=== PATIENT | male | born 1970 | race Caucasian/White ===

== ENCOUNTER → 2021-02-18 10:20 | Outpatient (BNVA) | payer OTHER, SELFPAY | PROVIDERS: PCP Internal Medicine; Visit Provider Hospitalist ==

== ENCOUNTER 2022-12-30 10:00 | Outpatient (REF) | payer OTHER, SELFPAY ==
--- NOTE | 2022-12-30 13:12 | PFT_ITS ---
INDICATION: Asthma. SPIROMETRY: FEV1 to FVC of 76% with an FEV1 of 3.38 L, which is 79% predicted and an FVC of 4.43 L, which is 80% predicted. There was a significant response to bronchodilator is noted. Maximum voluntary ventilation is 79% of predicted. LUNG VOLUMES: Total lung capacity 87% predicted with an expiratory reserve volume of only 9% predicted. DIFFUSION CAPACITY: DLCO 83% predicted. COMPARISONS: None. INTERPRETATION: No obstructive nor restrictive ventilatory defects identified. The patient did have a significant response to bronchodilators noted and also significant small airway disease consistent with a history of asthma. There is some mild decrease in maximum voluntary ventilation secondary to likely deconditioning. Lung volumes are normal except for decrease in the expiratory reserve volume secondary to an elevated BMI. Diffusion capacity is within normal limits. When compared to 2019, there is a significant decrease in the FVC, no significant change in the FEV1, a trend increase in the total lung capacity, and a trend increase in the diffusion capacity. Clinical correlation warranted. MD MARGARET Allison/CONCEPCIÓN / [id number]
== END 2022-12-30 10:01 | disposition home or self-care (01) ==
LOC: HO.RESP 10:00
PROVIDERS: PCP Internal Medicine; Visit Provider Hospitalist
DX: J45.909 Unspecified asthma, uncomplicated (principal)
CPT/HCPCS: 94060; 94727; 94729

== ENCOUNTER → 2023-01-09 10:10 | Outpatient (BNVA) | payer OTHER, SELFPAY | PROVIDERS: PCP Internal Medicine; Visit Provider Hospitalist | DX: Z13.89 Encounter for screening for other disorder (principal) ==

== ENCOUNTER 2024-07-02 09:20 | Outpatient (AMB) | payer OTHER, SELFPAY ==
[2024-07-02 09:27] VITALS: PULSE 69; O2SAT 98; BMI 30.3
--- NOTE | 2024-07-02 09:27 | MHC.OFFVIS ---
Vital Signs 07/02/24 09:27 Height 6 ft 1 in Weight 230 lb BMI 30.3 Pulse 69 Pulse Source Pulse Oximeter Pulse Oximetry (%) 98 Oxygen Delivery Method Room Air Intake Visit Reasons: Asthma Process Development Engineer Required: No Allergies No Known Allergies Allergy (Verified 07/02/24 09:28) HPI Comments Details: The patient is a 54-year-old gentleman with a history of pneumonia several years back. Apparently at that time he was in [place] and was admitted with respiratory failure to the ICU. He was not clear at the time the etiology of his lower respiratory infection. He was able to be discharged. After that he did have off and on respiratory symptoms. He will need usually prednisone for brief period of time in addition to some antibiotics. He would also have a rescue inhaler. However, about a month ago his respiratory symptoms worsen with significant cough and shortness of breath. He would be short of breath even with minimal activity. He became very concerned he was evaluated the medical Center. He was found to be hypoxic down to the 80s and he also had a CT scan of the chest demonstrating extensive bronchiolitis in his right upper lung zone in addition to the bilateral lower lung zones right more than left. Consistent with bronchiolitis and bronchitis. The patient required a 2nd course of prednisone and antibiotics. Now he is feeling better back to his baseline. He is is concerned that he does not want to be crippled by this respiratory issues. As far as exposures to have a dog at home. Denies any other pets denies any other hobbies. 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 We did review his pulmonary function studies demonstrating a reversible obstruction although his FEV1 to FVC still on the lower limit of normal. In addition to that we review his allergy testing with multiple environmental and mold allergies. Some are pretty significant. Therefore I given copies any will look into it further. Additional allergy medication may be warranted but he is not looking to start any new medicines at this time since he is doing okay. Will plan to have him come back in several months and repeat his chest x-ray. At that time we could reconsider allergy medicine. 07/02/2024 the patient is here for a pulmonary follow-up visit. The patient overall has been doing very well. He unfortunately ran out of his Symbicort and quickly his symptoms started to worsen. He started developing some chest congestion some chest tightness. Does respond very well to the Symbicort would like to continue it. He also uses allergy medication [id number] with good response. The patient is also working on dietary changes. He has had some weight gain. He also has some lower extremity edema. We did talk about the importance of low-sodium diet. Is going to work on that too. So therefore he continue with current respiratory therapy. Will go ahead and request a chest x-ray. He can follow-up in a year's time. [facility] Medical History (Updated 07/02/24 @ 22:08 by Peañ Rolle MD) Bronchiolitis Pneumonia Chronic allergic rhinitis Asthma Social History (Updated 01/09/23 @ 10:21 by LEO Davenport) Patient Tobacco Use Status: Never used Tobacco Review of Systems Const Denies night sweats and Reports weight gain ENT Denies change in voice, Denies lip swelling, Denies mouth pain, Reports nasal congestion, Reports nasal discharge and Denies tongue swelling Card Denies chest pain and Reports dyspnea on exertion Resp Reports cough, Reports dyspnea on exertion and Reports wheezing GI Denies abdominal pain Musc Denies no additional complaints Neuro Denies Neuro-related abnormal movements Psych Denies no additional complaints Ander/Lymph Denies easy bleeding and Denies lymphadenopathy Aller/Immun Denies lip swelling, Denies tongue swelling and Reports wheezing Physical Exam Vital Signs: Last Vital Signs Pulse 69 07/02/24 09:27 Pulse Ox 98 07/02/24 09:27 Oxygen Delivery Method Room Air 07/02/24 09:27 BMI result Body Mass Index 30.3 Const General: alert Eyes Conjunctivae: conjunctival abnormal bilateral conjunctival injection and discharge Neck Neck: Yes normal visual inspection, Yes full ROM and Yes no lymphadenopathy Chest Chest palpation & inspection: normal inspection of the chest Resp Effort & Inspection: normal respiratory effort Auscultation: no wheezes and diminished lung sounds Cardio Rate: regular rate Rhythm: regular rhythm Heart sounds: S1 normal heart sound present, S2 normal heart sound present and Normal, physiologic split S2 sound present GI Palpation (GI): Soft to palpation and nontender Auscultation: normal bowel sounds General: Yes no CVA tenderness Back/Spine/Pelvis Back: no CVA tenderness Skin General skin exam: rashes and/or lesions noted Assessment & Plan Assessment & Plan (1) Asthma: Code(s): J45.909 - Unspecified asthma, uncomplicated Category: Medical Qualifiers: Asthma complication type: uncomplicated Asthma persistence: persistent Asthma severity: moderate Qualified Code(s): J45.40 - Moderate persistent asthma, uncomplicated (2) Chronic allergic rhinitis: Code(s): J30.9 - Allergic rhinitis, unspecified Category: Medical (3) Allergy to mold: Code(s): Z91.048 - Other nonmedicinal substance allergy status Category: Medical (4) Acute bacterial conjunctivitis: Code(s): H10.30 - Unspecified acute conjunctivitis, unspecified eye Category: Medical Qualifiers: Laterality: bilateral Qualified Code(s): H10.33 - Unspecified acute conjunctivitis, bilateral Plan continue Symbicort continue TRISTAN as needed Continue generic Zyrtec Consider Singulair nasal rinsing Mold avoidance CXR 1 yr Orders: Orders XR chest 2V Today J45.40 - Moderate persistent asthma, uncomplicated Medications: New erythromycin 0.5 inches ophthalmic (eye) BID 3.5 grams 0RF 7 days Changed From Symbicort 160-4.5 mcg/actuation (budesonide-formoterol) 2 puffs PO BID 90 days 3 ea 3RF NS To budesonide-formoterol 160-4.5 mcg/actuation 2 puffs inhalation BID 30.6 grams 3RF 30 days NS Coding Level of Care Code Est Pt Level 4 (75517) Diagnoses Moderate persistent asthma without complication J45.40 Asthma complication type: uncomplicated Asthma persistence: persistent Asthma severity: moderate Chronic allergic rhinitis J30.9 Allergy to mold Z91.048 Acute bacterial conjunctivitis of both eyes H10.33 Laterality: bilateral Time Spent (min) 16
== END 2024-07-02 09:42 | disposition home or self-care (01) ==
PROVIDERS: PCP Internal Medicine; Visit Provider Hospitalist
DX: J45.40 Moderate persistent asthma, uncomplicated (principal); J30.9 Allergic rhinitis, unspecified; Z91.048 Other nonmedicinal substance allergy status; H10.33 Unspecified acute conjunctivitis, bilateral
CPT/HCPCS: 99214

== ENCOUNTER → 2024-07-02 09:20 | Outpatient (BNVA) | payer OTHER, SELFPAY | PROVIDERS: PCP Internal Medicine; Visit Provider Hospitalist ==

== ENCOUNTER 2025-04-21 13:50 | Outpatient (AMB) | payer OTHER, SELFPAY ==
--- NOTE | 2025-04-21 13:52 | A.OFFPC_ITS ---
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 Allergies acetaminophen [From Tylenol] Allergy (Unknown, Verified 04/21/25 14:00) Unknown Medication List - Last Reconciled 04/21/25 by Paula Espinoza, SANITARIAN AIDE- albuterol sulfate 90 mcg/actuation 2 puffs PO Q4H PRN cetirizine (Zyrtec) 10 mg PO DAILY PRN Symbicort 160-4.5 mcg/actuation (budesonide-formoterol) 2 puffs inhalation BID 30 days NS Zepbound (tirzepatide (weight loss)) 5 mg (0.5 mL) subcut QWEEK NS Tobacco use date assessed: 04/21/25 Dental Screening Dental Screen Date: 04/21/25 Did you have a dental visit in the last 12 months?: Yes Did you have a dental problem in the last 6 months where you did not have access to dental care?: No Was dental information given to patient?: Patient has dentist HPI HPI Comments History of Present Illness Details 55 year old male with past medical histo ry of seasonal allergies, chronic cough, History - The patient is a 55-year-old male pres enting with wheezing and increased inhaler usage over the last three weeks. - Past asthma and seasonal allergies. - Increased Symbicort usage from one puf f daily to two twice daily. - Aggravated symptoms linked to high humberto rafael, including initial severe nasal allergy symptoms which are now resolved. - Productive cough with yellow sputum, n o fever or chills present. - Use of Flonase and OTC allergy meds; r elief is partial. - Rescue inhaler used in this episode; t ypically not needed. Asthma/allergies: on symbicort 160-4.5 2 puff twice daily, prn albuterol, zyrtec. Pneumonia in fall 2023. Place on duo antibiotic therapy. FFd by [facility] pulm, last visit 06/2024, note reviewed. Annual FU only. ROS CONSTITUTIONAL: Denies weight loss, fever and chills. HEENT: Denies changes in vision and hearing. RESPIRATORY: Denies SOB and cough. CV: Denies palpitations and CP GI: Denies abdominal pain, nausea, vomiting and diarrhea. Physical Exam General: Awake, alert. No apparent distress Eyes: Sclera and conjunctiva clear bilaterally Nose: Nares patent, turbinates within normal limits, no sinus tenderness with palpation bilaterally Ears: Tympanic membranes intact and clear bilaterally Throat: Moist mucosa membrane, pharynx within normal limits Cardiovascular: Regular rate and rhythm Respiratory: LLL coarse rhonci, no LOTT, no cough noted during exam Results CXR ordered and pending Discussion Notes I discussed the patient's symptoms and likely exacerbation of asthma due to increased pollen and potential upper respiratory involvement. I recommended a short course of prednisone to address airway inflammation and alleviate wheezing. I emphasized the proper use of inhalers and the potential need for a chest X-ray to rule out other causes for a persistent cough, such as a bacterial infection. I advised the patient to look for any worsening symptoms and to ensure follow-up care. It was discussed and agreed that any future diagnostic imaging results would be promptly reviewed and shared via the patient portal, giving the patient anticipatory guidance on steps moving forward based on current findings. Assessment and Plan 1. Asthma Exac and Hx of PNA - Exacerbation likely from pollen; incre ase Symbicort to two puffs BID. - Prednisone 50 mg daily for five days. - Zpak - chest X-ray 2. Seasonal Allergies - Continue Flonase and Zyrtec. - Avoid allergens; monitor symptoms. 3. Chronic Cough - Related to asthma exacerbation. Patient Instructions - Take Symbicort as prescribed, two puff s twice daily. - Complete prednisone course as directed . - Continue Flonase and Zyrtec - complete ZPak . - Avoid exposure to high pollen if possi ble. - Use rescue inhaler as needed. - Watch for worsening symptoms; seek car e if condition deteriorates. Consent Patient was informed and verbally consented to the use of an ambient scribe for clinic note documentation during this visit. Total time spent caring for the patient today was 30 minutes. This includes time spent before the visit reviewing the chart, time spent during the visit, and time spent after the visit on documentation, reviewing laboratory results, diagnostic imaging, medications, performing a medically necessary evaluation, counseling on diagnoses, care coordination, ordering appropriate tests, ordering appropriate medications, review of tests performed by other providers, reporting test results with the patient, communication with other healthcare providers. [facility] Medical History Bronchiolitis Pneumonia Chronic allergic rhinitis Asthma Family History Father Diabetes Paternal Grandmother Brain cancer Social History Housing: House Patient Tobacco Use Status: Never used Tobacco e-Cigarette/Vaping Use: Never Used Second Hand Smoke Exposure: No service: No Current occupational status: employed Current occupation: [employer] Current occupational exposures/hazards: No Cognitive needs: No Hearing needs: No Vision needs: No Questionnaire PHQ-9 Over the last 2 weeks, how often have you been bothered by any of the following problems? 1. Little interest or pleasure in doing things: not at all 2. Feeling down, depressed, or hopeless: not at all 3. Trouble falling or staying asleep, or sleeping too much: not at all 4. Feeling tired or having little energy: not at all 5. Poor appetite or overeating: not at all 6. Feeling bad about yourself - or that you are a failure or have let yourself or your family down: not at all 7. Trouble concentrating on things, such as reading the newspaper or watching television: not at all 8. Moving or speaking so slowly that other people could have noticed. Or the opposite - being so fidgety or restless that you have been moving around a lot more than usual: not at all 9. Thoughts that you would be better off or of hurting yourself in some way: not at all Total score: 0 Depression Screening Interpretation: Negative Depression Screening Done: Yes 23000 - PHQ-9 Billing: Yes Source: Developed by Drs. Fidel Ferrari, Chelsey Moore, Beka Vickers and colleagues, with an educational jose from [email or web address]. Thrive Questionnaire Date Thrive assessed: 04/21/25 I am a: Patient What is your living situation today?: I have a steady place to live Within the past 12 months, did the food you bought not last and you didn't have the money to get more?: Never true Within the past 12 months, did you worry whether your food would run out before you got money to buy more?: Never true Do you have trouble paying for medicines?: Yes Do you have trouble getting transportation to medical appointments?: No Do you have trouble paying your heating and electricity bill?: No Do you have trouble taking care of your child, family member or friend?: No Do you have trouble with day-to-day activities such as bathing, preparing meals, shopping, managing finances, etc.?: No Are you currently unemployed and looking for a job?: No Are you interested in more education?: No Please select the resources that you would like help with: None Currently or been in a relationship where the following occur: I choose not to answer THRIVE Score: 0 ARLYN-7 AMB Questionnaire ARLYN-7 Date ARLYN - 7 assessed: 04/21/25 Feeling nervous, anxious, or on edge: 0 = Not at all Not being able to stop or control worryin = Not at all Worrying too much about different things: 0 = Not at all Trouble relaxin = Not at all Being so restless that it is hard to sit still: 0 = Not at all Becoming easily annoyed or irritable: 0 = Not at all Feeling afraid as if something awful might happen: 0 = Not at all Total ARLYN-7 score (0-4 normal; 5-9 mild; 10-14 moderate; 15-21 severe): 0 Source: Developed by Drs. Fidel Ferrari, Chelsey Moore, Beka Vickers and colleagues, with an educational jose from [email or web address]. ARLYN-7 Assessment Billing ARLYN-7 Assessment Tool: ARLYN-7 Assessment 64476 Physical exam (Primary Care) Vital Signs: Last Vital Signs Temp 97.2 F 04/21/25 13:56 Pulse 62 04/21/25 13:56 Resp 12 04/21/25 13:56 BP 128/72 04/21/25 13:56 Pulse Ox 98 04/21/25 13:56 Oxygen Delivery Method Room Air 04/21/25 13:56 BMI result Body Mass Index 32.6 Tobacco/Smoking Status: Tobacco use Status Tobacco use date assessed 04/21/25 04/21/25 13:58 Patient Tobacco Use Status Never used Tobacco 04/21/25 13:58 e-Cigarette/Vaping Use Never Used 04/21/25 13:58 PHQ-9: PHQ-9 Score PHQ-9: Total score 0 04/21/25 14:01 Depression Screening Interpretation: Negative Thrive Assessment: Date of Thrive Assessment Date Thrive assessed 04/21/25 04/21/25 13:58 Currently or been in a relationship where the following occur: I choose not to answer Coding Level of Care Code Est Pt Level 4 (05255) Complex EM visit Add On G2211 Diagnoses Moderate persistent asthma without complication J45.40 Asthma complication type: uncomplicated Asthma persistence: persistent Asthma severity: moderate Subacute cough R05.2 Cough type: subacute Additional Codes ARLYN-7 Assessment Billing - ARLYN-7 Assessment Tool: ARLYN-7 Assessment 87293 ([id number]) PHQ-9 - 24782 - PHQ-9 Billing: Yes ([id number]) Assessment & Plan Assessment & Plan (1) Asthma: Code(s): J45.909 - Unspecified asthma, uncomplicated Category: Medical Qualifiers: Asthma complication type: uncomplicated Asthma persistence: persistent Asthma severity: moderate Qualified Code(s): J45.40 - Moderate persistent asthma, uncomplicated (2) Cough: Code(s): R05.9 - Cough, unspecified Category: Medical Qualifiers: Cough type: subacute Qualified Code(s): R05.2 - Subacute cough Plan . Orders: Orders XR chest 2V Today J45.40 - Moderate persistent asthma, uncomplicated, R05.9 - Cough, unspecified Medications: New prednisone 50 mg PO DAILY 5 tabs 0RF 5 days azithromycin For 250 mg dose pack: take 500 mg today (day 1), then 250 mg for 4 days (days 2-5) PO 6 tabs 0RF 5 days
[2025-04-21 13:56] VITALS: BP 128/72; PULSE 62; RESP 12; TEMP 36.2; O2SAT 98; BMI 32.6
== END 2025-04-21 14:12 | disposition home or self-care (01) ==
LOC: HO.HMCFM 13:51
PROVIDERS: PCP Internal Medicine; Visit Provider Nurse Practitioner Family
DX: J45.40 Moderate persistent asthma, uncomplicated (principal); R05.2 Subacute cough

== ENCOUNTER → 2025-04-21 13:50 | Outpatient (BNVA) | payer OTHER, SELFPAY | PROVIDERS: PCP Internal Medicine; Visit Provider Nurse Practitioner Family | DX: J45.40 Moderate persistent asthma, uncomplicated (principal); R05.2 Subacute cough; Z91.09 Other allergy status, other than to drugs and biological substances; Z13.31 Encounter for screening for depression; Z13.30 Encounter for screening examination for mental health and behavioral disorders, unspecified | CPT/HCPCS: 96127 ==

== ENCOUNTER 2025-06-24 10:25 | Outpatient (AMB) | payer OTHER, SELFPAY ==
--- NOTE | 2025-06-24 10:28 | A.OFFPC_ITS ---
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 Allergies acetaminophen (From Tylenol) Allergy (Unknown, Verified 06/24/25 10:49) Unknown Medication List - Last Reconciled 06/24/25 by TRISH Bautista- albuterol sulfate 90 mcg/actuation 2 puffs PO Q4H PRN cetirizine (Zyrtec) 10 mg PO DAILY PRN Symbicort 160-4.5 mcg/actuation (budesonide-formoterol) 2 puffs inhalation BID 30 days NS Zepbound (tirzepatide (weight loss)) 5 mg (0.5 mL) subcut QWEEK NS Tobacco use date assessed: 06/24/25 Dental Screening Dental Screen Date: 06/24/25 Did you have a dental visit in the last 12 months?: Yes Did you have a dental problem in the last 6 months where you did not have access to dental care?: No Was dental information given to patient?: Patient has dentist HPI HPI Comments History of Present Illness Details 55 year old male with f seasonal allergi es, chronic cough, hyperlipidemia, h/o elevated BP , obesity Surgery: denies new surgery Fhx: No changes Colonoscopy: Colonoscopy 2022, [place], repeat 3 years Tdap 2022 Eye and Lasix cheaters only for reading History of Present Illness - The patient is a 55-year-old male pres enting for a complete physical examination. - Asthma managed with Zyrtec, Symbicort, and albuterol; monitored by pulmonology; no recent exacerbations. - Obesity with a BMI of 31.6; current tr eatment with Zepbound 5 mg. - Reports a Bump L owen, present since antonio higginbotham 05/16/25 - No recent surgeries; family medical hi story remains unchanged. - Colonoscopy done in 2022; follow-up du bryan in 2025. - Regular eye exams; reading glasses Past Surgical History - LASIK surgery in 2006 Family History - No changes reported in family medical history Social History - Patient has battled weight issues and is managing obesity with Zepbound, experiencing weight loss. - Expresses difficulties abstaining from sweets - Previously changed insurance plans due to family dissatisfaction with provider Leidy. - Adjusted to new insurance, inquiring a bout coverage continuation for Zepbound. Health Maintenance - Recent colonoscopy in 2022; next due i n 2025. - Tetanus vaccination received in 2022. Review of Systems - Respiratory: Denies exacerbations, rep orts asthma well-managed. - Dermatologic: Reports a bump on the le ft weaver, denies infection symptoms. - General: Denies recent surgeries. - Vision: Reports regular eye exams post -LASIK; uses reading glasses. Physical Exam General: Well developed, well nourished, in no acute distress. Appears stated age. Obesity with a BMI of 31.6 noted. Head: Normocephalic, atraumatic. Eyes: Pupils are equal, round and reactive to light and accommodation. Conjunctivae are clear. Vision grossly normal. Ears: TMs clear AU, EACS WNL. Nose: Patent, without discharge. Neck: Supple, no adenopathy or thyromegaly. Breast: Edu on SBE. Lungs: Clear to auscultation bilaterally. No rales, rhonchi or wheeze noted. Good air flow in all zarco. Heart: Regular rate and rhythm. No murmurs, click, rubs or gallops are noted. Abdomen: Bowel sounds present in all quadrants. The abdomen is soft, nontender, with no masses or organomegaly noted. No hernias are noted. : Deferred. Reviewed CHRIS & recommendations Pulses: Peripheral pulses are equal and palpable bilaterally. Extremities: No clubbing, cyanosis nor edema is noted. L anterior weaver, proximal to ankle is a palpable lump w/o fluctuance or signs of infection , overlying skin normal, no pain Neurologic: Gait and station normal. Cranial Nerves 2-12 intact. Motor strength grossly symmetrical and intact. No sensory loss. Balance normal. Skin: No rashes, ulcers, or lesions noted. Turgor is good. Skin color is good. Hair and nails are without abnormalities. Psych: Normal eye contact, affect and mood appropriate, and normal interactions. Patient is alert and appropriate to context. Results - Labs: Last available data from 2019 in current system. - Tests: Recent colonoscopy in 2022 aj cates a repeat schedule for 2025. - Ordered today and pending Discussion Notes During the visit, I reassured him that the bump on his weaver is likely due to coagulated blood from past trauma and not an infection, as evidenced by the absence of redness or pain. Suggested applying moist compresses to reduce the bump or leaving it alone if it does not bother him. Discussed the benefits of Zepbound for weight management and covered the need for potential prior authorization due to insurance changes. Advised a series of lab tests covering cholesterol and prostate screening for ongoing health maintenance. Encouraged clear communication with me or Dr. Martins to ensure continued management under new insurance coverage. Patient was given time to ask questions. All questions were answered to their satisfaction. Assessment and Plan 1. Asthma - Maintain Symbicort, albuterol regimen. - Regular pulmonology reviews. 2. Obesity - Continue Zepbound 5 mg. - Confirm insurance prior authorization. 3. Lump L ankle - Suspected coagulated blood. - Recommend moist compresses. - Supportive care and reassurance 4. Health Maintenance - Plan labs, prostate, cholesterol scree bri. - Flu vaccination when available. Patient Instructions - Apply moist compresses to the weaver bum p. - Continue asthma and allergy medication s as prescribed. - Maintain Zepbound for weight managemen t. - Await notification for upcoming lab re sults. - Acquire flu vaccine when accessible. - RTO 3 mo to fu with PCP on GLP1 , whic h may require paperwork given insurance change Consent Patient was informed and verbally consented to the use of an ambient scribe for clinic note documentation during this visit. [facility] Medical History (Updated 06/24/25 @ 11:34 by TRISH Bautista-BEAN) Asthma Bronchiolitis Chronic allergic rhinitis Pneumonia Surgical History (Updated 06/24/25 @ 08:34 by TRISH Bautista-BEAN) History of colonoscopy (~01/17/23) Family History Father Diabetes Paternal Grandmother Brain cancer Social History Housing: House Patient Tobacco Use Status: Never used Tobacco e-Cigarette/Vaping Use: Never Used Second Hand Smoke Exposure: No service: No Current occupational status: employed Current occupation: [employer] Current occupational exposures/hazards: No Cognitive needs: No Hearing needs: No Vision needs: No Questionnaire PHQ-9 Over the last 2 weeks, how often have you been bothered by any of the following problems? 1. Little interest or pleasure in doing things: not at all 2. Feeling down, depressed, or hopeless: not at all 3. Trouble falling or staying asleep, or sleeping too much: not at all 4. Feeling tired or having little energy: not at all 5. Poor appetite or overeating: not at all 6. Feeling bad about yourself - or that you are a failure or have let yourself or your family down: not at all 7. Trouble concentrating on things, such as reading the newspaper or watching television: not at all 8. Moving or speaking so slowly that other people could have noticed. Or the opposite - being so fidgety or restless that you have been moving around a lot more than usual: not at all 9. Thoughts that you would be better off or of hurting yourself in some way: not at all Total score: 0 Depression Screening Interpretation: Negative Depression Screening Done: Yes [id number] - PHQ-9 Billing: Yes Source: Developed by Drs. Fidel Ferrari, Chelsey Moore, Beka Vickers and colleagues, with an educational jose from elicit. Thrive Questionnaire Date Thrive assessed: 06/24/25 I am a: Patient What is your living situation today?: I have a steady place to live Within the past 12 months, did the food you bought not last and you didn't have the money to get more?: Never true Within the past 12 months, did you worry whether your food would run out before you got money to buy more?: Never true Do you have trouble paying for medicines?: Yes Do you have trouble getting transportation to medical appointments?: No Do you have trouble paying your heating and electricity bill?: No Do you have trouble taking care of your child, family member or friend?: No Do you have trouble with day-to-day activities such as bathing, preparing meals, shopping, managing finances, etc.?: No Are you currently unemployed and looking for a job?: No Are you interested in more education?: No Please select the resources that you would like help with: None Currently or been in a relationship where the following occur: I choose not to answer THRIVE Score: 0 AUDIT C Alcohol Use Questionnaire (AUDIT-C) 1. How often do you have a drink containing alcohol?: Never 3. How often do you have six or more drinks on one occasion?: Never Total Score: 0 Score Reviewed/Action Taken: Yes ARLYN-7 AMB Questionnaire ARLYN-7 Date ARLYN - 7 assessed: 06/24/25 Feeling nervous, anxious, or on edge: 0 = Not at all Not being able to stop or control worryin = Not at all Worrying too much about different things: 0 = Not at all Trouble relaxin = Not at all Being so restless that it is hard to sit still: 0 = Not at all Becoming easily annoyed or irritable: 0 = Not at all Feeling afraid as if something awful might happen: 0 = Not at all Total ARLYN-7 score (0-4 normal; 5-9 mild; 10-14 moderate; 15-21 severe): 0 Source: Developed by Drs. Fidel Ferrari, Chelsey Moore, Beka Vickers and colleagues, with an educational jose from elicit. ARLYN-7 Assessment Billing ARLYN-7 Assessment Tool: ARLYN-7 Assessment 47593 ACT Questionnaire In the past 4 weeks, how much of the time did your asthma keep you from getting as much done at work, school or at home?: None of the time During the past 4 weeks, how often have you had shortness of breath?: Not at all During the past 4 weeks, how often did your asthma symptoms wake you up at night or earlier than usual in the morning?: Not at all During the past 4 weeks, how often have you had to use your rescue inhaler or nebulizer medication?: Not at all How would you rate your asthma control during the past 4 weeks?: Completely controlled ACT Interpretation: Negative Score: 25 Physical exam (Primary Care) Vital Signs: Last Vital Signs Temp 96.9 F 06/24/25 10:31 Pulse 78 06/24/25 10:31 Resp 12 06/24/25 10:31 BP 117/67 06/24/25 10:31 Pulse Ox 98 06/24/25 10:31 Oxygen Delivery Method Room Air 06/24/25 10:31 BMI result Body Mass Index 31.6 BMI Assessment/Plan discussion: High BMI High, discussed plan: lifestyle Tobacco/Smoking Status: Tobacco use Status Tobacco use date assessed 06/24/25 06/24/25 10:32 Patient Tobacco Use Status Never used Tobacco 06/24/25 10:32 e-Cigarette/Vaping Use Never Used 06/24/25 10:32 PHQ-9: PHQ-9 Score PHQ-9: Total score 0 06/24/25 10:49 Depression Screening Interpretation: Negative Thrive Assessment: Date of Thrive Assessment Date Thrive assessed 06/24/25 06/24/25 10:32 Currently or been in a relationship where the following occur: I choose not to answer Coding Level of Care Code Est Pt Prev Care 40-64y(22039) Diagnoses Encounter for general adult medical examination without abnormal findings Z00.00 Chronic allergic rhinitis J30.9 Obesity (BMI 30-39.9) E66.9 Moderate persistent asthma without complication J45.40 Asthma complication type: uncomplicated Asthma persistence: persistent Asthma severity: moderate Laboratory exam ordered as part of routine general medical examination Z00.00 Long-term (current) use of injectable non-insulin antidiabetic drugs Z79.85 Additional Codes Asthma Control Questionnaire - ACT Interpretation: Negative ([id number]) ARLYN-7 Assessment Billing - ARLYN-7 Assessment Tool: ARLYN-7 Assessment 71248 ([id number]) PHQ-9 - 84481 - PHQ-9 Billing: Yes ([id number]) Assessment & Plan Assessment & Plan (1) Encounter for general adult medical examination without abnormal findings: Onset Date: ~06/24/25 Code(s): Z00.00 - Encounter for general adult medical examination without abnormal findings Category: Medical (2) Chronic allergic rhinitis: Code(s): J30.9 - Allergic rhinitis, unspecified Category: Medical (3) Obesity (BMI 30-39.9): Code(s): E66.9 - Obesity, unspecified Category: Medical (4) Asthma: Code(s): J45.909 - Unspecified asthma, uncomplicated Category: Medical Qualifiers: Asthma complication type: uncomplicated Asthma persistence: persistent Asthma severity: moderate Qualified Code(s): J45.40 - Moderate persistent asthma, uncomplicated (5) Laboratory exam ordered as part of routine general medical examination: Code(s): Z00.00 - Encounter for general adult medical examination without abnormal findings Category: Medical (6) Long-term (current) use of injectable non-insulin antidiabetic drugs: Code(s): Z79.85 - Long-term (current) use of injectable non-insulin antidiabetic drugs Category: Medical Plan , Orders: Orders Complete Blood Count no Diff Today Z00.00 - Encounter for general adult medical examination without abnormal findings Comprehensive Met. Panel Today Z00.00 - Encounter for general adult medical examination without abnormal findings Hemoglobin A1c Today Z00.00 - Encounter for general adult medical examination without abnormal findings Lipid Panel Today Z00.00 - Encounter for general adult medical examination without abnormal findings Microalbumin, Random (w Creat) Today Z00.00 - Encounter for general adult medical examination without abnormal findings Prostate Specific Antigen Scr Today Z00.00 - Encounter for general adult medical examination without abnormal findings Vitamin D 25-OH Total Today Z00.00 - Encounter for general adult medical examination without abnormal findings TSH reflex Free T4 Today Z00.00 - Encounter for general adult medical examination without abnormal findings Vitamin B12 and Folate Today Z00.00 - Encounter for general adult medical examination without abnormal findings Patient Instructions: Health screenings for men You should visit your health care provider regularly, even if you feel healthy. The purpose of these visits is to: Screen for medical issues Assess your risk for future medical problems Encourage a healthy lifestyle Update vaccinations and other preventive care services Help you get to know your provider in case of an illness Information Even if you feel fine, you should still see your provider for regular checkups. These visits can help you avoid problems in the future. For example, the only way to find out if you have high blood pressure is to have it checked regularly. High blood sugar and high cholesterol level also may not have any symptoms in the early stages. Simple blood tests can check for these conditions. There are specific times when you should see your provider or receive specific health screenings. The [place] Preventive Services Task Force publishes a list of recommended screenings. Below are screening guidelines for men ages 40 to 64. BLOOD PRESSURE SCREENING Have your blood pressure checked at least once every year. Watch for blood pressure screenings in your area. Ask your provider if you can stop in to have your blood pressure checked. Ask your provider if you need your blood pressure checked more often if: You have diabetes, heart disease, kidney problems, or are overweight or have certain other health conditions You have a first-degree relative with high blood pressure You are Black Your blood pressure top number is from 120 to 129 mm Hg, or the bottom number is from 70 to 79 mm Hg If the top number is 130 mm Hg or greater or the bottom number is 80 mm Hg or greater, this is considered stage 1 hypertension. Schedule an appointment with your provider to learn how you can lower your blood pressure. Effects of age on blood pressure CHOLESTEROL SCREENING Cholesterol screening should begin at age 35 for men with no known risk factors for coronary heart disease. Repeat cholesterol screening should take place: Every 5 years for men with normal cholesterol levels More often if changes occur in lifestyle (including weight gain and diet) More often if you have diabetes, heart disease, kidney problems, or certain other conditions COLORECTAL CANCER SCREENING If you are under age 45, talk to your provider about getting screened. You may need to be screened if you have a strong family history of colon cancer or polyps. Screening may also be considered if you have risk factors such as a history of inflammatory bowel disease or polyps. If you are age 45 to 75, you should be screened for colorectal cancer. There are several screening tests available: A stool-based fecal occult blood (gFOBT) or fecal immunochemical test (FIT) every year A stool sDNA test every 1 to 3 years Flexible sigmoidoscopy every 5 years or every 10 years with stool testing FIT done every year CT colonography (virtual colonoscopy) every 5 years Colonoscopy every 10 years You may need a colonoscopy more often if you have risk factors for colorectal cancer, such as: Ulcerative colitis A personal or family history of colorectal cancer A history of growths in your colon called adenomatous polyps DENTAL EXAM Go to the dentist once or twice every year for an exam and cleaning. Your den tist will evaluate if you have a need for more frequent visits. DIABETES SCREENING All adults who do not have risk factors for diabetes should be screened starting at age 35 and repeated every 3 years. If you have other risk factors for diabetes, such as a first degree relative with diabetes, overweight or obesity, high blood pressure, prediabetes, or a history of heart disease, you may be tested more often. If you are overweight and have other risk factors, such as high blood pressure and are planning to become , screening is recommended. EYE EXAM Have an eye exam every 2 to 4 years ages 40 to 54 and every 1 to 3 years ages 55 to 64. Your provider may recommend more frequent eye exams if you have vision problems or glaucoma risk. Have an eye exam that includes an examination of your retina (back of your eye) at least every year if you have diabetes. IMMUNIZATIONS Commonly needed vaccines include: Flu shot: get one every year COVID-19 vaccine: ask your provider what is best for you Tetanus-diphtheria and acellular pertussis (Tdap) vaccine: have as one of your tetanus-diphtheria vaccines if you did not receive it as an adolescent Tetanus-diphtheria: have a booster (or Tdap) every 10 years Varicella vaccine: receive 2 doses if you never had chickenpox or the varicella vaccine and were born in 1979 or after Hepatitis B vaccine: receive 2, 3, or 4 doses, depending on your exact circumstances, if you did not receive these as a child or adolescent, until age 59 Shingles (herpes zoster) vaccine: at or after age 50 Ask your provider if you should receive other immunizations, especially if you have certain medical conditions, such as diabetes or are at increased risk for some diseases such as pneumonia. INFECTIOUS DISEASE SCREENING Screening for hepatitis C: all adults ages 18 to 79 should get a one-time test for hepatitis C. Screening for human immunodeficiency virus (HIV): all people ages 15 to 65 should get a one-time test for HIV. Depending on your lifestyle and medical history, you may need to be screened for infections such as syphilis, chlamydia, and other infections. LUNG CANCER SCREENING You should have an annual screening for lung cancer with low-dose computed tomography (LDCT) if: You are age 50 to 80 years AND You have a 20 pack-year smoking history AND You currently smoke or have quit within the past 15 years OSTEOPOROSIS SCREENING If you are age 50 to 64 and have risk factors for osteoporosis, you should discuss screening with your provider. Risk factors can include long-term steroid use, low body weight, smoking, heavy alcohol use, having a fracture after age 50, or a family history of hip fracture or osteoporosis. Osteoporosis PHYSICAL EXAM All adults should visit their provider from time to time, even if they are hea lthy. The purpose of these visits is to: Screen for diseases Assess risk of future medical problems Encourage a healthy lifestyle Update vaccinations and other preventive care services Maintain a relationship with a provider in case of an illness Your height, weight, and body mass index (BMI) should be checked at every exam. During your exam, your provider may ask you about: Depression and anxiety Diet and exercise Alcohol and tobacco use Safety, such as use of seat belts and smoke detectors Your medicines and risk for interactions PROSTATE CANCER SCREENING If you're 55 through 69 years old, before having the test, talk to your provider about the pros and cons of having a PSA test. Ask about: Whether screening decreases your chance of dying from prostate cancer. Whether there is any harm from prostate cancer screening, such as side effects from testing or overtreatment of cancer when discovered. Whether you have a higher risk of prostate cancer than others. If you are age 55 or younger, screening is not generally recommended. You should talk with your provider about if you have a higher risk for prostate cancer. Risk factors include: Having a family history of prostate cancer (especially a brother or father) Being If you choose to be tested, the PSA blood test is repeated over time (yearly or less often), though the best frequency is not known. Prostate examinations are no longer routinely done on men with no symptoms. Prostate cancer SKIN EXAM Your provider may check your skin for signs of skin cancer, especially if you're at high risk. People at high risk include those who have had skin cancer before, have close relatives with skin cancer, or have a weakened immune system. TESTICULAR EXAM The [place] Preventive Services Task Force (USPSTF) now recommends against performing testicular self-exams. Doing testicular self-exams has been shown to have little to no benefit.
[2025-06-24 10:31] VITALS: BP 117/67; PULSE 78; RESP 12; TEMP 36.1; O2SAT 98; BMI 31.6
--- OUTSIDE RECORDS SUMMARY | 2025-06-24 11:28 | XMS_ITS ---
Author Name [facility] Organization Unknown Care Team Organization Name Specialty Phone Email Start Date End Da te [facility] Daniela Lindquist [facility] 09/20/2022 4
== END 2025-06-24 11:08 | disposition home or self-care (01) ==
LOC: HO.HMCFM 10:26
PROVIDERS: PCP Internal Medicine; Visit Provider Nurse Practitioner Family
DX: Z00.00 Encounter for general adult medical examination without abnormal findings (principal); J30.9 Allergic rhinitis, unspecified; Z68.31 Body mass index [BMI] 31.0-31.9, adult; E66.9 Obesity, unspecified; J45.40 Moderate persistent asthma, uncomplicated; Z79.85 Long-term (current) use of injectable non-insulin antidiabetic drugs

== ENCOUNTER 2025-06-24 10:25 | Outpatient (REF) | payer OTHER, SELFPAY ==
[2025-06-24 14:21] LABS: Hematocrit 42.5 % (42.0-52.0); Hemoglobin 14.2 g/dl (14.0-18.0); Mean Corpuscular HGB Conc 33.4 g/dl (31.0-36.0); Mean Corpuscular Hemoglobin 31.5 pg (27.0-33.0); Mean Corpuscular Volume 94.2 fL (80.0-98.0); NRBC Abs Auto 0.000 X10*3/uL (0.0-0.012); NRBC Pct Auto 0.0 /100WBC (0.0-0.2); Platelet Count 183 X10*3/uL (160-400); Red Blood Count 4.51 X10*6/uL (4.60-5.80); White Blood Count 6.3 X10*3/uL (4.8-10.8)
[2025-06-24 14:43] LABS: Hemoglobin A1C 139.2524 umol/L; Total Hemoglobin (HGBA1C) 4041.4630 umol/L
[2025-06-24 14:47] LABS: Alanine Aminotransferase 37 U/L (0-40); Albumin Level 4.7 g/dL (3.5-5.0); Alkaline Phosphatase 95 U/L (39-117); Anion Gap 11 (12-20); Aspartate Amino Transferase 25 U/L (5-37); Blood Urea Nitrogen 22 mg/dL (9-16); Calcium 9.3 mg/dL (8.4-10.2); Carbon Dioxide 26 mmol/L (22-29); Chloride 107 mmol/L (96-108); Cholesterol 224 mg/dL (<200); Estimated Glomerular Filt Rate > 60; HDL Cholesterol 43 mg/dL (>40); Potassium 4.8 mmol/L (3.3-5.1); Sodium 139 mmol/L (135-145); Total Protein 7.1 g/dL (6.5-8.0); Triglycerides 86 mg/dL (<150)
[2025-06-24 14:47] LABS: Microalbum/Creatinine Ratio Ur 3.3 ug/mg cr (<30)
[2025-06-24 14:55] LABS: Folate 4.7 ng/mL (> or = 4.0); Vitamin B12 416 pg/mL (200-900)
== END 2025-06-24 10:26 | disposition home or self-care (01) ==
LOC: HO.WFDLDS 10:25
PROVIDERS: PCP Internal Medicine; Visit Provider Nurse Practitioner Family
DX: Z00.00 Encounter for general adult medical examination without abnormal findings (principal); Z12.5 Encounter for screening for malignant neoplasm of prostate; Z13.1 Encounter for screening for diabetes mellitus; E78.00 Pure hypercholesterolemia, unspecified; J30.9 Allergic rhinitis, unspecified; J45.40 Moderate persistent asthma, uncomplicated; E66.9 Obesity, unspecified; Z68.31 Body mass index [BMI] 31.0-31.9, adult; Z71.3 Dietary counseling and surveillance
CPT/HCPCS: 36415; 80053; 80061; 82043; 82306; 82570; 82607; 82746; 83036; 84153; 84443; 85027; 96127; 96160

== ENCOUNTER 2025-08-01 08:54 | Outpatient (AMB) | payer OTHER, SELFPAY ==
[2025-08-01 08:59] VITALS: BP 108/70; PULSE 70; O2SAT 96; BMI 32.3
--- NOTE | 2025-08-01 08:59 | A.OFFVIS_ITS ---
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 Apparently at that time he was in [place] and was admitted with respiratory failure to the ICU. He was not clear at the time the etiology of his lower respiratory infection. He was able to be discharged. After that he did have off and on respiratory symptoms. He will need usually prednisone for brief period of time in addition to some antibiotics. He would also have a rescue inhaler. However, about a month ago his respiratory symptoms worsen with significant cough and shortness of breath. He would be short of breath even with minimal activity. He became very concerned he was evaluated the medical Center. He was found to be hypoxic down to the 80s and he also had a CT scan of the chest demonstrating extensive bronchiolitis in his right upper lung zone in addition to the bilateral lower lung zones right more than left. Consistent with bronchiolitis and bronchitis. The patient required a 2nd course of prednisone and antibiotics. Now he is feeling better back to his baseline. He is is concerned that he does not want to be crippled by this respiratory issues. As far as exposures to have a dog at home. Denies any other pets denies any other hobbies. 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 We did review his pulmonary function studies demonstrating a reversible obstruction although his FEV1 to FVC still on the lower limit of normal. In addition to that we review his allergy testing with multiple environmental and mold allergies. So me are pretty significant. Therefore I given copies any will look into it further. Additional allergy medication may be warranted but he is not looking to start any new medicines at this time since he is doing okay. Will plan to have him come back in several months and repeat his chest x-ray. At that time we could reconsider allergy medicine. 07/02/2024 the patient is here for a pulmonary follow-up visit. The patient overall has been doing very well. He unfortunately ran out of his Symbicort and quickly his symptoms started to worsen. He started developing some chest congestion some chest tightness. Does respond very well to the Symbicort would like to continue it. He also uses allergy medication [id number] with good response. The patient is also working on dietary changes. He has had some weight gain. He also has some lower extremity edema. We did talk about the importance of low-sodium diet. Is going to work on that too. So therefore he continue with current respiratory therapy. Will go ahead and request a chest x- ray. He can follow-up in a year's time. 07/31/2025 the patient is here for pulmonary follow-up visit. Overall the patient has been doing well. He continues on Symbicort. He has been upset about his weight. He did go and Zepbound a little bit and it did help him some. Now is trying to make lifestyle changes in dietary changes. He is also trying to increase his exercise. Respiratory baird the patient is doing well denies any respiratory limitations. Will have him get an x-ray though because he has not have an x-ray for baseline. His last PFTs were back in 2022 which demonstrated small airways disease consistent with his diagnosis of asthma. He has been very stable on the Symbicort no additional medications required. The patient will follow-up in a year's time she has any issues he can always call for further recommendations. [facility] Medical History (Updated 06/25/25 @ 07:07 by TRISH Bautista-BEAN) Bronchiolitis Pneumonia Chronic allergic rhinitis Asthma Surgical History (Updated 06/24/25 @ 08:34 by TRISH Bautista-BEAN) History of colonoscopy (~01/17/23) Family History Father Diabetes Paternal Grandmother Brain cancer Social History Housing: House Patient Tobacco Use Status: Never used Tobacco e-Cigarette/Vaping Use: Never Used Second Hand Smoke Exposure: No service: No Current occupational status: employed Current occupation: [employer] Current occupational exposures/hazards: No Cognitive needs: No Hearing needs: No Vision needs: No Review of Systems Const Denies night sweats and Reports weight gain ENT Denies change in voice, Denies lip swelling, Denies mouth pain, Reports nasal congestion, Reports nasal discharge and Denies tongue swelling Card Denies chest pain and Reports dyspnea on exertion Resp Reports cough, Reports dyspnea on exertion and Reports wheezing GI Denies abdominal pain Musc Denies no additional complaints Neuro Denies Neuro-related abnormal movements Psych Denies no additional complaints Ander/Lymph Denies easy bleeding and Denies lymphadenopathy Aller/Immun Denies lip swelling, Denies tongue swelling and Reports wheezing Physical Exam Vital Signs: Last Vital Signs Pulse 70 08/01/25 08:59 BP 108/70 08/01/25 08:59 Pulse Ox 96 08/01/25 08:59 Oxygen Delivery Method Room Air 08/01/25 08:59 BMI result Body Mass Index 32.3 Const General: alert Eyes Conjunctivae: conjunctival abnormal bilateral conjunctival injection and discharge Neck Neck: Yes normal visual inspection, Yes full ROM and Yes no lymphadenopathy Chest Chest palpation & inspection: normal inspection of the chest Resp Effort & Inspection: normal respiratory effort Auscultation: no wheezes and diminished lung sounds Cardio Rate: regular rate Rhythm: regular rhythm Heart sounds: S1 normal heart sound present, S2 normal heart sound present and Normal, physiologic split S2 sound present GI Palpation (GI): Soft to palpation and nontender Auscultation: normal bowel sounds General: Yes no CVA tenderness Back/Spine/Pelvis Back: no CVA tenderness Skin General skin exam: rashes and/or lesions noted Assessment & Plan Assessment & Plan (1) Asthma: Code(s): J45.909 - Unspecified asthma, uncomplicated Category: Medical Qualifiers: Asthma severity: moderate Asthma persistence: persistent Asthma complication type: uncomplicated Qualified Code(s): J45.40 - Moderate persistent asthma, uncomplicated (2) Chronic allergic rhinitis: Code(s): J30.9 - Allergic rhinitis, unspecified Category: Medical (3) Allergy to mold: Code(s): Z91.048 - Other nonmedicinal substance allergy status Category: Medical Plan continue Symbicort continue TRISTAN as needed Continue generic Zyrtec Consider Singulair nasal rinsing Mold avoidance CXR F/U 12-18 months Orders: Orders XR chest 2V Today J45.40 - Moderate persistent asthma, uncomplicated Coding Level of Care Code Est Pt Level 4 (49162) Diagnoses Moderate persistent asthma without complication J45.40 Asthma severity: moderate Asthma persistence: persistent Asthma complication type: uncomplicated Chronic allergic rhinitis J30.9 Allergy to mold Z91.048 Time Spent (min) 15
== END 2025-08-01 09:20 | disposition home or self-care (01) ==
LOC: HO.HPS 08:55
PROVIDERS: PCP Internal Medicine; Visit Provider Hospitalist
DX: J45.40 Moderate persistent asthma, uncomplicated (principal); J30.9 Allergic rhinitis, unspecified; Z91.048 Other nonmedicinal substance allergy status
CPT/HCPCS: 99214

== ENCOUNTER 2025-08-15 10:20 | Outpatient (AMB) | payer OTHER, SELFPAY ==
--- NOTE | 2025-08-15 10:27 | A.OFFPC_ITS ---
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 on symbicort 160-4.5 2 puff twice daily, prn albuterol, zyrtec. Pneumonia in fall 2023. CV: BP 128/86.. Denies chest pain, shortness of breath.Patient successfully went from 256 to 239 on zepound then changed insurance and the medication stopped being covered. He has gained some weight without the med, now up to 246. Was tolerating it well. Has failed dietary and lifestyle changes in the past. Last LDL 164 Colonoscopy: [place] 2022. Has to repeat in 3 years ROS CONSTITUTIONAL: Denies weight loss, fever and chills. HEENT: Denies changes in vision and hearing. RESPIRATORY: Denies SOB and cough. CV: Denies palpitations and CP GI: Denies abdominal pain, nausea, vomiting and diarrhea. : Denies dysuria and urinary frequency. MSK: Denies new myalgia and joint pain. SKIN: Denies rash and pruritus. NEUROLOGICAL: Denies headache PSYCHIATRIC: Denies recent changes in mood. PHYSICAL EXAM: GENERAL: Alert and oriented x 3. NAD EYES: EOMI. Anicteric. HENT: Moist mucous membranes. No scleral icterus. No cervical lymphadenopathy. LUNGS: Clear to auscultation bilaterally. CARDIOVASCULAR: Regular rate and rhythm. No murmur. No JVD. ABDOMEN: Soft, non-tender +bs EXTREMITIES: No edema. Non-tender. SKIN: No rashes or lesions. Warm. NEUROLOGIC: No focal neurological deficits. CN II-XII grossly intact PSYCHIATRIC: Cooperative. Appropriate mood and affect [facility] Medical History (Updated 10/05/25 @ 14:24 by Vibha Martins MD) Bronchiolitis Pneumonia Chronic allergic rhinitis Asthma Surgical History (Updated 06/24/25 @ 08:34 by Paula Espinoza [facility]) History of colonoscopy (~01/17/23) Family History Father Diabetes Paternal Grandmother Brain cancer Social History Housing: House Patient Tobacco Use Status: Never used Tobacco e-Cigarette/Vaping Use: Never Used Second Hand Smoke Exposure: No service: No Current occupational status: employed Current occupation: [employer] Current occupational exposures/hazards: No Cognitive needs: No Hearing needs: No Vision needs: No Questionnaire Thrive Questionnaire Date Thrive assessed: 12/10/24 I am a: Patient What is your living situation today?: I have a steady place to live Within the past 12 months, did the food you bought not last and you didn't have the money to get more?: Never true Within the past 12 months, did you worry whether your food would run out before you got money to buy more?: Never true Do you have trouble paying for medicines?: Yes Do you have trouble getting transportation to medical appointments?: No Do you have trouble paying your heating and electricity bill?: No Do you have trouble taking care of your child, family member or friend?: No Do you have trouble with day-to-day activities such as bathing, preparing meals, shopping, managing finances, etc.?: No Are you currently unemployed and looking for a job?: No Are you interested in more education?: No Please select the resources that you would like help with: None Currently or been in a relationship where the following occur: I choose not to answer THRIVE Score: 0 AUDIT C Alcohol Use Questionnaire (AUDIT-C) 1. How often do you have a drink containing alcohol?: Monthly or less 2. How many drinks containing alcohol do you have on a typical day when you are drinking?: 1 or 2 3. How often do you have six or more drinks on one occasion?: Never Total Score: 1 ARLYN-7 AMB Questionnaire ARLYN-7 Date ARLYN - 7 assessed: 06/24/25 Source: Developed by Drs. Fidel Ferrari, Chelsey Moore, Beka Vickers and colleagues, with an educational jose from test company. Physical exam (Primary Care) Vital Signs: Last Vital Signs Pulse 61 08/15/25 10:28 Resp 14 08/15/25 10:28 BP 122/86 08/15/25 10:28 Pulse Ox 97 08/15/25 10:28 Oxygen Delivery Method Room Air 08/15/25 10:28 BMI result Body Mass Index 33.4 Tobacco/Smoking Status: Tobacco use Status Tobacco use date assessed 08/15/25 08/15/25 10:31 Patient Tobacco Use Status Never used Tobacco 08/15/25 10:31 e-Cigarette/Vaping Use Never Used 08/15/25 10:31 Thrive Assessment: Date of Thrive Assessment Date Thrive assessed 12/10/24 08/15/25 10:31 Currently or been in a relationship where the following occur: I choose not to answer Coding Level of Care Code Est Pt Level 3 (56386) Diagnoses Obesity (BMI 30-39.9) E66.9 Hyperlipidemia, unspecified hyperlipidemia type E78.5 Hyperlipidemia type: unspecified Moderate persistent asthma without complication J45.40 Asthma severity: moderate Asthma persistence: persistent Asthma complication type: uncomplicated Assessment & Plan Assessment & Plan (1) Obesity (BMI 30-39.9): Code(s): E66.9 - Obesity, unspecified Category: Medical (2) HLD (hyperlipidemia): Code(s): E78.5 - Hyperlipidemia, unspecified Category: Medical Qualifiers: Hyperlipidemia type: unspecified Qualified Code(s): E78.5 - Hyperlipidemia, unspecified (3) Asthma: Code(s): J45.909 - Unspecified asthma, uncomplicated Category: Medical Qualifiers: Asthma severity: moderate Asthma persistence: persistent Asthma complication type: uncomplicated Qualified Code(s): J45.40 - Moderate persistent asthma, uncomplicated Plan 55 year old for follow up Obesity, HLD, impaired glucose with normal A1C. Recommend restarting GLP therapy Sun damaged skin, AKs-requests derm referral for FBSE Asthma-stable on current medications Orders: Referrals Dermatology Referral Z12.83 - Encounter for screening for malignant neoplasm of skin Medications: Refilled Zepbound (tirzepatide (weight loss)) 5 mg (0.5 mL) subcut QWEEK 6 mL 3RF NS E66.9 - Obesity, unspecified, E78.5 - Hyperlipidemia, unspecified
[2025-08-15 10:28] VITALS: BP 122/86; PULSE 61; RESP 14; O2SAT 97; BMI 33.4
== END 2025-08-15 15:27 | disposition home or self-care (01) ==
LOC: HO.HMCFM 10:21
PROVIDERS: PCP Internal Medicine; Visit Provider Internal Medicine
DX: E78.5 Hyperlipidemia, unspecified (principal); E66.9 Obesity, unspecified; J45.40 Moderate persistent asthma, uncomplicated; Z68.33 Body mass index [BMI] 33.0-33.9, adult